=== PATIENT | male | born 1950 | race Caucasian/White ===

== ENCOUNTER 2020-12-04 16:58 | Emergency (ER) | payer MEDICARE, SELFPAY ==
--- NOTE | ~2020-12-04 | CT_ITS ---
EXAMINATION: CT cervical spine wo con DATE: 12/04/2020 17:57 INDICATION: Neck pain after fall. TECHNIQUE: Computed tomography (CT) of the cervical spine was performed without intravenous contrast. The dose-length product was 1:15 mGy-cm. Automated exposure control and iterative reconstruction dawit hnique were employed. COMPARISON: None FINDINGS: Vertebral body heights are maintained. Accentuated thoracic lordosis. There is moderate mul tilevel facet hypertrophy. There is mild disc narrowing at multiple levels. Odontoid process within n ormal limits. There is severe emphysema of the lung apices. No significant paraspinal soft tissue abn ormality. No acute fracture or traumatic malalignment. There is multilevel uncinate hypertrophy. Mild levocurvature of the cervical spine. Odontoid process within normal limits. Craniovertebral junction is normal. IMPRESSION: 1. No acute fracture. 2: Moderate cervical spondylosis. Reviewed, dictated and finalized at location A.
--- NOTE | ~2020-12-04 | XR_ITS ---
EXAMINATION: XR chest 2V 12/04/2020 18:17 INDICATION: Status post fall. Chest pain. PROCEDURE: 2 view chest COMPARISON: No prior studies for comparison. FINDINGS: The lungs are clear. The cardiomediastinal silhouette is within normal limits. There are no pleural effusions. There is no pneumothorax suspected. There is upper lobe scarring. IMPRESSION: 1: NO ACUTE CARDIOPULMONARY DISEASE. Reviewed, dictated and finalized at location A.
--- NOTE | ~2020-12-04 | XR_ITS ---
XR elbow RT min 3V 12/04/2020 18:15 INDICATION: Right elbow pain after fall PROCEDURE: 4 views right elbow COMPARISON: No prior studies for comparison. FINDINGS: Fracture, dislocation or subluxation is not identified. No significant joint effusion. The soft tissues appear within normal limits. No foreign bodies are identified. IMPRESSION: 1: NO ACUTE BONE OR JOINT ABNORMALITY IDENTIFIED. Reviewed, dictated and finalized at location A.
--- NOTE | ~2020-12-04 | CT_ITS ---
EXAMINATION: CT BRAIN W/O DATE: 12/04/2020 17:57 INDICATION: Status post fall. Head injury. TECHNIQUE: Computed tomography (CT) of the head was performed without intravenous contrast. The dose- length product was 605.33 mGy-cm. Automated exposure control and iterative reconstruction technique w ere employed. COMPARISON: No prior studies for comparison. FINDINGS: Normal brain parenchymal volume for age. Normal mcdonald-white differentiation. No acute intrac ranial hemorrhage, infarction, mass or mass effect. No ventriculomegaly or midline shift. Midline sagittal images demonstrate a normal corpus callosum, c raniovertebral junction and sella turcica. Basilar cisterns are patent. Paranasal sinuses and mastoids are pneumatized. No depressed skull fractures. IMPRESSION: 1. No acute intracranial abnormality. Reviewed, dictated and finalized at location A.
--- NOTE | ~2020-12-04 | XR_ITS ---
XR ankle RT min 3V 12/04/2020 18:15 INDICATION: Right ankle pain after fall PROCEDURE: 4 views right ankle COMPARISON: No prior studies for comparison. FINDINGS: Fracture, dislocation or subluxation is not identified. Osteopenia. The soft tissues appear within normal limits. No foreign bodies are identified. IMPRESSION: 1: NO ACUTE BONE OR JOINT ABNORMALITY IDENTIFIED. Reviewed, dictated and finalized at location A.
[2020-12-04 17:14] VITALS: BP 100/74; PULSE 81; RESP 18; TEMP 36.6; O2SAT 98
[2020-12-04 17:39] LABS: Basophils Percent Auto 0.4 % (0.2-1.2); Eosinophils Absolute Auto 0.1 K/mm3 (0-0.3); Eosinophils Percent Auto 1.1 % (0-4.4); Hematocrit 44.8 % (42.0-52.0); Hemoglobin 14.8 g/dL (14.0-18.0); Immature Granulocyte Absolute 0.11 K/mm3 (0.00-0.031); Immature Granulocyte Percent A 1.3 % (0-0.5); Lymphocytes Absolute Auto 1.48 K/mm3 (0.9-3.2); Mean Corpuscular Hemoglobin 30.3 pg (26-34); Mean Corpuscular Volume 91.6 fl (80-100); Mean Platelet Volume 9.4 fl (7.4-10.4); Monocytes Absolute Auto 0.5 K/mm3 (0.1-0.6); Monocytes Percent Auto 6.2 % (2.6-8.5); Platelet Count Result 175 k/mm3 (150-375); Red Blood Count 4.89 M/mm3 (4.6-6.20); Red Cell Distribution Width 13.3 % (11.5-14.5); White Blood Count 8.2 K/mm3 (4.5-10.0)
[2020-12-04 17:49] LABS: Anion Gap 9 mmol/L (8-16); Blood Urea Nitrogen 9 mg/dL (9-20); Carbon Dioxide 29 mmol/L (22-30); Chloride 101 mmol/L (98-107); Estimated CRCL calculation 85 ml/min; Estimated Glomerular Filt Rate > 60; Glucose 100 mg/dL (75-110); Potassium 3.6 mmol/L (3.4-5.0); Sodium 139 mmol/L (137-145)
[2020-12-04 20:55] VITALS: BP 118/74; PULSE 82; RESP 17; O2SAT 96
--- NOTE | 2020-12-04 20:59 | ED.FALL ---
HPI - Fall General Chief Complaint: Fall Stated Complaint: fall/hi Time Seen by Provider: 12/04/20 20:18 Source: patient Mode of arrival: wheelchair Limitations: no limitations History of Present Illness HPI Narrative: This is a 69-year-old male that presents to the emergency department after a fall today with head injury. Reports he tripped over his shoelaces and fell down about 10 steps. Does report hitting his head. Denies loss of consciousness. He is not on a blood thinner. Reports injury to the right elbow and right ankle. Reports some neck pain. Denies fever, vision changes, vomiting, numbness, or weakness. Review of Systems Review of Systems: Narrative: CONSTITUTIONAL: Denies fever EYES: Denies visual changes CARDIOVASCULAR: Denies chest pain RESPIRATORY: Denies dyspnea. GASTROINTESTINAL: Denies vomiting GENITOURINARY: Denies dysuria MUSCULOSKELETAL: Reports joint pain and myalgia. Denies back pain NEUROLOGIC: Denies headache, numbness, or weakness. All systems reviewed & are unremarkable except as noted in HPI and below PMFSH Past Medical History Medical History (Updated 12/04/20 @ 21:09 by Erika Jiménez PA-C) No active medical problems Social History Social History (Updated 12/04/20 @ 21:01 by Erika Jiménez PA-C) Substance use: never Gender identity (if verbalized by the patient): Male Exam Narrative: Exam Narrative: GENERAL: Well-appearing, well-nourished, and in no acute distress. HEAD: Normocephalic. 2.5 cm irregular laceration into subcutaneous tissue over the posterior scalp EYES: PERRLA and EOMI. ENT: Nares clear, no rhinorrhea or epistaxis. Mucous membranes moist. Oropharynx without tonsillar hypertrophy exudate or other lesions. Bilateral TMs pearly mcdonald non-bulging NECK: Supple. No adenopathy or masses. No midline cervical spine tenderness CHEST: Clear to auscultation. No respiratory distress. No wheezes rales or rhonchi HEART: Regular rate and rhythm. No murmur heard. Normal peripheral pulses. ABDOMEN: Soft, nontender, nondistended, normal active bowel sounds. BACK: No midline thoracic or lumbar spine tenderness EXTREMITIES: Normal range of motion. No edema or obvious deformity. SKIN: Warm, dry, no rash. NEURO: No focal deficits. Alert and oriented x3. Cranial nerves II through XII grossly intact PSYCH: Normal mood and affect Course Vital Signs Vital signs: Vital Signs Temperature 98 F 12/04/20 17:14 Pulse Rate 81 12/04/20 17:14 Respiratory Rate 18 12/04/20 17:14 Blood Pressure 100/74 12/04/20 17:14 Pulse Oximetry 98 12/04/20 17:14 Temperature 98 F 12/04/20 17:14 Pulse Rate 82 12/04/20 20:55 Respiratory Rate 17 12/04/20 20:55 Blood Pressure 118/74 12/04/20 20:55 Pulse Oximetry 96 12/04/20 20:55 Procedures Laceration Laceration 1: Date: 12/04/20 Site: scalp Size (cm): 2.5 Description: irregular Depth: simple, single layer Local Anesthetic: none Pre-repair: irrigated ====== Skin Level ====== Skin layer closed with: carrol Number of sutures: 3 ====== Subcutaneous Layer ====== ====== Muscle Layer ====== ====== Tendon Layer ====== MDM - Fall MDM Narrative Medical decision making narrative: Patient presents to the emergency department after a fall down steps with head injury. He is neurologically intact. His vitals are stable. CBC and metabolic panel without concerning findings. CT scans of the brain and cervical spine are without acute findings. Right ankle and elbow x-rays are without acute osseous abnormalities. Chest x-ray without acute cardiopulmonary abnormality. Patient's wound was irrigated and closed with carrol. He is up-to-date on tetanus. Patient is stable and felt appropriate for further outpatient evaluation. He is to follow-up with primary care doctor. He was given warnings to return to the ER Lab Data Attestation: I reviewed the
[2020-12-04 21:56] LABS: Add Urine Microscopic? YES; Appearance Urine Clear (Clear); Bacteria Urine Trace /hpf; Bilirubin Urine Negative (Negative); Blood Urine Negative (Negative); Color Urine Yellow (Yellow); Glucose Urine UA Negative (Negative); Ketones Urine Negative (Negative); Leukocyte Esterase Ur Negative LEU/UL (Negative); Nitrate Urine Negative (Negative); Protein Urine Negative (Negative); RBC Urine 0-2 /hpf (0-2); Specific Grav Ur 1.016 (1.001-1.035); Squamous Epithelial Cell Urine Rare /hpf (Few); WBC Urine 0-3 /hpf
== END 2020-12-04 21:24 | disposition home or self-care (01) ==
PROVIDERS: Emergency Medicine; Emergency Provider Emergency Medicine
DX: S01.01XA Laceration without foreign body of scalp, initial encounter (principal); M47.812 Spondylosis without myelopathy or radiculopathy, cervical region; W10.9XXA Fall (on) (from) unspecified stairs and steps, initial encounter
CPT/HCPCS: 12001; 36415; 70450; 71046; 72125; 73080; 73610; 80048; 81001; 85025; 99284; L0140